=== PATIENT | male | born 1955 | race Caucasian/White ===

== ENCOUNTER 2018-06-09 08:29 | Day surgery (SDC) | payer OTHER ==
[2018-06-09] MEDS ORDERED: MIDAZOLAM 1 MG/ML 2 ML INJ ×3 (10:27)
[2018-06-09] MEDS ORDERED: FENTAnyl 50 MCG/ML VIAL (10:27)
== END 2018-06-09 15:13 | disposition home or self-care (01) ==
LOC: GIL 08:29
DX: Z12.11 Encounter for screening for malignant neoplasm of colon (principal); D12.5 Benign neoplasm of sigmoid colon; D12.8 Benign neoplasm of rectum; K64.8 Other hemorrhoids; I10 Essential (primary) hypertension; E11.9 Type 2 diabetes mellitus without complications
CPT/HCPCS: 45380; 82962; 88305